=== PATIENT | female | born 1960 ===

== ENCOUNTER 2025-07-05 13:10 | Inpatient (IN) | payer OTHER ==
[~2025-07-05] VITALS: Ht 91.4 cm; Wt 72.6 kg
[~2025-07-05 13:10] MED LIST: ATACAND16 MG PO; INSENTRESS; PREZCOBIX 8001 EACH PO; SYNTHROID50 MCG PO; TOPROL XL25 M1 PO
[2025-07-16] MEDS ORDERED: METRONIDAZOLE/SODIUM CHLORIDE 500 MG/100 ML PIGGYBACK IV ONE ×2 (10:58→17:40)
[2025-07-16] MEDS ORDERED: CEFTRIAXONE SODIUM 2,000 MG VIAL ONE (10:58)
[2025-07-16] MEDS ORDERED: ONDANSETRON HCL 2 MG/ML VIAL IV PRN (14:30)
[2025-07-16] MEDS ORDERED: DEXTROSE 50 % IN WATER 0.5 G/ML DISP.SYRIN IV PRN (14:30)
[2025-07-16] MEDS ORDERED: MORPHINE SULFATE 4 MG/ML CARTRIDGE IV PRN (14:30)
[2025-07-16] MEDS ORDERED: 0.9 % SODIUM CHLORIDE 1,000 ML IV SCH (14:30)
[2025-07-16] MEDS ORDERED: OxyCODONE HCL 5 MG TABLET (ROXICODONE) PO PRN (14:30)
[2025-07-16 16:28] LABS: BASO % 0.3 % (0.1-1.2); EOS # 0.11 (0.04-0.54); EOS % 0.6 % (0.7-7.0); LYMPH # 1.79 (1.18-3.74); LYMPH % 9.2 % (19.3-53.1); MEAN PLATELET VOLUME 9.90 fl (9.4-12.4); MONO # 1.09 (0.24-0.82); MONO % 5.6 % (4.7-12.5); NEUT # 16.21 (1.56-6.13); NEUT % 83.7 % (34.0-71.1); RED CELL DISTRIBUTION WIDTH 15.0 % (11.6-14.4)
[2025-07-16 16:46] LABS: BUN CREA RATIO 9.0 (7.0-25.0); CREATININE SERUM 1.15 mg/dL (0.55-1.02); GFR 47.21; GLUCOSE FASTING 144.0 mg/dL (65-100); OSMOLALITY SERUM 283.0 MOSM/KG (275-295)
[2025-07-16] MEDS ORDERED: HYOSCYAMINE SULFATE 0.125 MG TAB.SUBL SL SCH (17:00)
[2025-07-16] MEDS ORDERED: GABAPENTIN 300 MG CAPSULE PO SCH (17:00)
[2025-07-16] MEDS ORDERED: METRONIDAZOLE/SODIUM CHLORIDE 500 MG/100 ML PIGGYBACK IV SCH (17:00)
[2025-07-16] MEDS ORDERED: hydrALAZINE HCL 20 MG VIAL IV PRN (18:30)
[2025-07-16 20:00] VITALS: BP 109/65; O2SAT 95
[2025-07-16] MEDS ORDERED: ACETAMINOPHEN 500 MG GEL..CAP PO SCH (20:00)
[2025-07-16] MEDS ORDERED: CANDESARTAN CILEXETIL 16 MG TABLET PO SCH (21:00)
[2025-07-16] MEDS ORDERED: CELECOXIB 200 MG CAPSULE PO SCH (21:00)
[2025-07-16] MEDS ORDERED: FAMOTIDINE/PF 20 MG/2 ML VIAL IV PUSH SCH (21:00)
[2025-07-17 01:12] VITALS: BP 111/71; O2SAT 98
[2025-07-17] MEDS ORDERED: LEVOTHYROXINE SODIUM 25 MCG TABLET PO SCH (06:00)
[2025-07-17 07:08] LABS: BASO % 0.5 % (0.1-1.2); EOS # 0.02 (0.04-0.54); EOS % 0.2 % (0.7-7.0); LYMPH # 2.17 (1.18-3.74); LYMPH % 16.4 % (19.3-53.1); MEAN PLATELET VOLUME 10.50 fl (9.4-12.4); MONO # 1.11 (0.24-0.82); MONO % 8.4 % (4.7-12.5); NEUT # 9.85 (1.56-6.13); NEUT % 74.1 % (34.0-71.1); RED CELL DISTRIBUTION WIDTH 14.6 % (11.6-14.4)
[2025-07-17 07:36] LABS: BUN CREA RATIO 9.0 (7.0-25.0); CREATININE SERUM 1.05 mg/dL (0.55-1.02); GFR 52.43; GLUCOSE FASTING 112.0 mg/dL (65-100); OSMOLALITY SERUM 283.0 MOSM/KG (275-295)
[2025-07-17 07:45] VITALS: BP 114/69; O2SAT 95
[2025-07-17] MEDS ORDERED: METOPROLOL SUCCINATE 25 MG TAB.SR.24H PO SCH (09:00)
[2025-07-17 16:00] VITALS: BP 122/76; O2SAT 95
[2025-07-17] MEDS ORDERED: AMINO ACIDS 1 EACH TABLET PO SCH (17:00)
[2025-07-17] MEDS ORDERED: ENOXAPARIN SODIUM 40 MG/0.4 ML SYRINGE SUBCUTANEO SCH (17:00)
[2025-07-18 00:30] VITALS: BP 133/84; O2SAT 98
[2025-07-18 07:46] LABS: BUN CREA RATIO 8.0 (7.0-25.0); CREATININE SERUM 0.93 mg/dL (0.55-1.02); GFR 60.32; GLUCOSE FASTING 93.0 mg/dL (65-100); OSMOLALITY SERUM 286.0 MOSM/KG (275-295)
[2025-07-18 08:04] LABS: BASO % 0.7 % (0.1-1.2); EOS # 0.19 (0.04-0.54); EOS % 1.6 % (0.7-7.0); LYMPH # 2.79 (1.18-3.74); LYMPH % 23.3 % (19.3-53.1); MEAN PLATELET VOLUME 10.30 fl (9.4-12.4); MONO # 1.08 (0.24-0.82); MONO % 9.0 % (4.7-12.5); NEUT # 7.80 (1.56-6.13); NEUT % 65.1 % (34.0-71.1); RED CELL DISTRIBUTION WIDTH 14.8 % (11.6-14.4)
[2025-07-18] MEDS ORDERED: ENOXAPARIN SODIUM 40 MG/0.4 ML SYRINGE SUBCUTANEO SCH (09:00)
[2025-07-18] MEDS ORDERED: SOD FERRIC GLUC COMPLX/SUCROSE 62.5 MG in 0.9 % SODIUM CHLORIDE 50 ML IV SCH (09:00)
[2025-07-18] MEDS ORDERED: FAMOTIDINE/PF 20 MG/2 ML VIAL IV PUSH SCH (09:00)
[2025-07-18] MEDS ORDERED: Cyanocobalamin/Mecobalamin 1 TAB.SL SL SCH (09:00)
[2025-07-18] MEDS ORDERED: POTASSIUM PHOS,M-BASIC-D-BASIC 3 MM/ML VIAL IV ONE (13:00)
[2025-07-18 15:30] VITALS: BP 146/79; O2SAT 96
[2025-07-19 01:57] VITALS: BP 102/66; O2SAT 95
[2025-07-19 07:24] LABS: BASO % 0.4 % (0.1-1.2); EOS # 0.60 (0.04-0.54); EOS % 5.3 % (0.7-7.0); LYMPH # 2.95 (1.18-3.74); LYMPH % 26.2 % (19.3-53.1); MEAN PLATELET VOLUME 9.70 fl (9.4-12.4); MONO # 1.18 (0.24-0.82); MONO % 10.5 % (4.7-12.5); NEUT # 6.42 (1.56-6.13); NEUT % 57.2 % (34.0-71.1); RED CELL DISTRIBUTION WIDTH 15.1 % (11.6-14.4)
[2025-07-19] MEDS ORDERED: TRAM1TAB98 PO (10:10)
[2025-07-19] MEDS ORDERED: HYOSCYAMINE0.125 M1 SL (10:10)
[2025-07-19] MEDS ORDERED: ABANEU-SL TABL1 EACH SL (10:14)
[2025-07-19] MEDS ORDERED: INTEGRA F CAPS1 EACH PO (10:14)
[2025-07-19] MEDS ORDERED: PEPCID AC20 MG PO (10:15)
== END 2025-07-19 15:55 | disposition home or self-care (01) | DRG 331 ==
LOC: SURH 07-16 08:30 → O/R 07-16 10:00 → SURH 07-16 12:00 → SURG 07-16 15:18
PROVIDERS: Internal Medicine Geriatric Medicine; ADMIT Surgery; ATTEND Surgery
PROC: 0DBL3ZZ Excision of Transverse Colon, Percutaneous Approach (ICD-10-PCS; 2025-07-16)
PROC: 0DTF4ZZ Resection of Right Large Intestine, Percutaneous Endoscopic Approach (ICD-10-PCS; principal; 2025-07-16 08:30)
DX: C18.0 Malignant neoplasm of cecum (principal); R19.4 Change in bowel habit; R59.0 Localized enlarged lymph nodes; I11.9 Hypertensive heart disease without heart failure